=== PATIENT | male | born 1950 | race Caucasian/White ===

== ENCOUNTER 2018-01-10 11:02 | Emergency (ER) | payer OTHER, MEDICARE ==
--- NOTE | 2018-01-10 11:14 | CPEKG ---
Heart Rate: 82 RR Interval: 732 P-R Interval: 139 QRSD Interval: 76 QT Interval: 356 QTC Interval: 416 P Ruth: 0 QRS Ruth: -19 T Wave Ruth: 19 EKG Severity - OTHERWISE NORMAL ECG - EKG Impression: SINUS RHYTHM Electronically Signed By: Darin Schuler 10-Jan-2018 11:16:25
--- NOTE | 2018-01-10 11:15 | EDPHY ---
H & P Stated Complaint: Left arm pain Time Seen by Provider: 01/10/18 11:14 HPI/ROS: CHIEF COMPLAINT: Left arm pain HISTORY OF PRESENT ILLNESS: The patient has a history of coronary artery disease with remote stenting. He awoke today at 6 o'clock in the morning with some vague discomfort in his left arm. It was generally localized. He developed some slight paresthesias in his 5th finger is well. He had no complaints of chest pain or shortness of breath (please note in contrast to what is recorded by admission personnel). The patient reports he has had fairly regular follow-up with Cardiology. His last annual stress test was normal. He has had no acute exertional chest pain or shortness of breath. The patient denies any asymmetric calf pain or swelling. He denies any pleuritic chest pain currently. He denies any acute weakness. REVIEW OF SYSTEMS: A comprehensive 10 point review of systems is otherwise negative aside from elements mentioned in the history of present illness. Source: Patient Exam Limitations: No limitations - Personal History Current Tetanus/Diphtheria Vaccine: Yes Current Tetanus Diphtheria and Acellular Pertussis (TDAP): Yes Tetanus Vaccine Date: < 10 years - Medical/Surgical History Hx Asthma: No Hx Chronic Respiratory Disease: No Hx Diabetes: No Hx Cardiac Disease: Yes Hx Renal Disease: No Hx Cirrhosis: No Hx Alcoholism: No Hx HIV/AIDS: No Hx Splenectomy or Spleen Trauma: No Other PMH: CAD with stent placed in 1999. Hypothyroid, prostate sx, hernia - Social History Smoking Status: Former smoker - Physical Exam Exam: General Appearance: Alert, no distress Eyes: Pupils equal and round no pallor or injection ENT, Mouth: Mucous membranes moist Respiratory: There are no retractions, lungs are clear to auscultation Cardiovascular: Regular rate and rhythm Gastrointestinal: Abdomen is soft and nontender, no masses, bowel sounds normal Neurological: A&O, normal motor function, normal sensory exam, normal cranial nerves Skin: Warm and dry, no rashes Musculoskeletal: Neck is supple nontender Extremities: symmetrical, full range of motion Constitutional: Initial Vital Signs Temperature (C) 37.1 C 01/10/18 11:04 Heart Rate 79 01/10/18 11:04 Respiratory Rate 20 01/10/18 11:04 Blood Pressure 173/87 H 01/10/18 11:04 O2 Sat (%) 94 01/10/18 11:04 O2 Delivery Mode Room Air Allergies/Adverse Reactions: mussels Allergy (Verified 01/10/18 11:03) Home Medications: Medication Instructions Recorded Atorvastatin Calcium [Lipitor 40 40 mg PO DAILY 05/21/16 mg (*)] Multivitamins [Multivitamin (*)] 1 each PO DAILY 05/21/16 Furosemide [Lasix 20 MG (*)] 10 mg PO DAILY #0 tab 06/21/16 Levothyroxine [Synthroid 25 mcg 25 mcg PO DAILY06 #0 tab 06/21/16 (*)] Metoprolol Tartrate [Lopressor 25 25 mg PO BID #0 tab 06/21/16 mg (*)] Aspirin 01/10/18 Medical Decision Making - Diagnostics EKG Interpretation: EKG: Complete interpretation has been separately recorded in the [facility] archive. Summary impression: Sinus rhythm, rate 86 ED Course/Re-evaluation: The patient is well-appearing and in no acute distress. His neurologic examination is normal. His EKG demonstrates no evidence of ischemia. The patient awoke today with some vague discomfort of left arm pain at 6 o'clock in the morning. The patient's troponin is normal. He was placed on a cardiac catheterization technologist without evidence of arrhythmia. He was observed in the ED for an hour and a half. I discussed with the patient possible diagnoses in favor the most likely musculoskeletal source of his discomfort. He does understand that we cannot fully exclude progressive coronary artery disease. The patient is comfortable following up with his [facility] as an outpatient. He understands return to the ED immediately for any recurrent symptoms of angina, exertional chest pain, shortness of breath or other concerns. Differential Diagnosis: Differential diagnosis considered includes myofascial strain, acute coronary syndrome, cervical radiculopathy - Data Points Laboratory Results: Laboratory Results 01/10/18 11:15 01/10/18 11:15 Sodium 142 mEq/L mEq/L (135-145) Potassium 3.7 mEq/L mEq/L (3.5-5.2) Chloride 104 mEq/L mEq/L (97-110) Carbon Dioxide 25 mEq/l mEq/l (22-31) Anion Gap 13 mEq/L mEq/L (8-16) BUN 18 mg/dL mg/dL (7-23) Creatinine 0.9 mg/dL mg/dL (0.7-1.3) Estimated GFR > 60 Glucose 100 mg/dL mg/dL (70-100) Calcium 9.2 mg/dL mg/dL (8.5-10.4) Troponin I < 0.012 ng/mL ng/mL (0.000-0.034) Departure - Departure Disposition: Home, Routine, Self-Care Clinical Impression: Arm pain, left Condition: Good Instructions: Arm Pain (ED) Additional Instructions: 1. Based upon the testing done in the Emergency Department today we see no evidence of a heart attack. 2. We are unable to fully exclude coronary artery disease based upon the testing available in the Emergency Department. 3. For this reason, we would like you to be seen by cardiology for consideration of additional testing within the next 3 days. 4. Please contact the [facility] you have been referred to schedule this appointment as soon as possible. Their offices are typically open from 8:30am- 5pm M-F. 5. Please return to the Emergency Department immediately for any recurrent chest pain, difficulty breathing or other concerns. Referrals: Esteban Valencia MD [Medical Doctor] - As per Instructions
[2018-01-10 12:50] VITALS: BP 141/72; PULSE 71; RESP 15; TEMP 98.1; O2SAT 96
== END 2018-01-10 13:00 | disposition home or self-care (01) ==
DX: M79.602 Pain in left arm (principal); I25.10 Atherosclerotic heart disease of native coronary artery without angina pectoris; Z79.82 Long term (current) use of aspirin; Z87.891 Personal history of nicotine dependence; Z95.5 Presence of coronary angioplasty implant and graft

== ENCOUNTER → 2018-07-23 | Outpatient (CLI) | payer OTHER, MEDICARE | LOC: BHFA 13:00 | PROVIDERS: ATTEND Internal Medicine Cardiovascular Disease | DX: I25.10 Atherosclerotic heart disease of native coronary artery without angina pectoris (principal) | CPT/HCPCS: 78452; 93017; A9500 ==